=== PATIENT | male | born 1970 | race Caucasian/White ===

== ENCOUNTER 2021-05-06 03:16 | Observation (INO) | payer MEDICAID ==
[~2021-05-06] VITALS: Ht 188 cm; Wt 149.0 kg
[2021-05-06 04:03] LABS: BASOPHILS % (AUTO) 1 % (0-1); EOSINOPHILS % (AUTO) 4 % (1-7); LYMPHOCYTES % (AUTO) 34 % (22-44); MEAN PLATELET VOLUME 7.3 fL (7.4-10.4); MONOCYTES % (AUTO) 10 % (2-9); NEUTROPHILS % (AUTO) 52 % (42-75); PLATELET COUNT 277 x10^3/uL (130-400); RED BLOOD COUNT 5.64 x10^6/uL (4.38-5.82)
[2021-05-06 04:15] LABS: ALANINE AMINOTRANSFERASE 49 U/L (12-78); ALBUMIN 3.6 g/dL (3.4-5.0); CALCIUM 8.8 mg/dL (8.5-10.1); CHLORIDE 108 mmol/L (98-107); CREATININE 0.98 mg/dL (0.7-1.3)
[2021-05-06 04:19] LABS: ALKALINE PHOSPHATASE 44 U/L (45-117); BILIRUBIN,TOTAL 0.3 mg/dL (0.2-1.0); TROPONIN I < 0.015 ng/mL (0.000-0.045)
[2021-05-06 04:25] LABS: ANION GAP 4 mmol/L (5-15)
[2021-05-06 05:43] VITALS: BP 134/68
[2021-05-06] MEDS ORDERED: morphine SULFATE 10 MG/ML, 1ML IV PRN (06:00)
[2021-05-06] MEDS ORDERED: ONDANSETRON 2MG/ML, 2ML IV PRN (06:00)
[2021-05-06] MEDS ORDERED: NITROGLYCERIN 0.4 MG BOTTLE (25 TABS) SL PRN (06:00)
[2021-05-06] MEDS ORDERED: ACETAMINOPHEN 325 MG TABLET PO PRN (06:00)
[2021-05-06] MEDS ORDERED: NITROGLYCERIN 0.4 MG/SPRAY SL PRN (06:00)
[2021-05-06] MEDS ORDERED: KETOROLAC 30 MG/1 ML IV PRN (06:00)
[2021-05-06 06:26] LABS: CHOLESTEROL, TOTAL 241 mg/dL (140-239); TRIGLYCERIDES 77 mg/dL (50-200); VLDL CHOLESTEROL 15 mg/dL (0-25)
[2021-05-06 06:29] LABS: CHOL/HDL RATIO 5.7; HDL CHOL % 17 % (26-37); HDL CHOLESTEROL (DIRECT) 42 mg/dL (40-60); LDL CHOLESTEROL,CALCULATED 184 mg/dL (54-169); LDL/HDL RATIO 4.4 (0.5-3.0); TROPONIN I < 0.015 ng/mL (0.000-0.045)
--- NOTE | 2021-05-06 06:39 | NUR ---
REPORT GIVEN TO JOSE VELASQUEZ
--- NOTE | 2021-05-06 06:50 | NUR ---
report given to zev brooks until pt is transferred upstairs
[2021-05-06] MEDS ORDERED: REGADENOSON 0.4 MG/5 ML SYRINGE ONE (08:29)
[2021-05-06] MEDS ORDERED: SODIUM CHLORIDE FLUSH 10ML SYR IVF SCH (09:00)
[2021-05-06] MEDS ORDERED: ASPIRIN 81 MG TABLET EC PO SCH (09:00)
[2021-05-06 10:54] LABS: TROPONIN I < 0.015 ng/mL (0.000-0.045)
[2021-05-06] MEDS ORDERED: ATOR40TA78 PO (13:08)
[2021-05-06] MEDS ORDERED: ATORVASTATIN 40 MG TABLET PO SCH (21:00)
== END 2021-05-06 15:45 | disposition home or self-care (01) ==
LOC: ED 05:31 → EDIP 05:38 → INTOOBSV 05:38 → 5SO 07:05
PROVIDERS: ADMIT Internal Medicine; ATTEND Hospitalist
DX: R07.89 Other chest pain (principal); I10 Essential (primary) hypertension; E66.01 Morbid (severe) obesity due to excess calories; R94.31 Abnormal electrocardiogram [ECG] [EKG]; E78.5 Hyperlipidemia, unspecified; Z79.899 Other long term (current) drug therapy
CPT/HCPCS: 36415; 71045; 78452; 80053; 80061; 84484; 85025; 93005; 93017; 99285; A9502; G0378; J2785; 96375